=== PATIENT | male | born 1985 | race Caucasian/White ===

== ENCOUNTER 2020-03-30 10:10 | Emergency (ER) | payer OTHER, SELFPAY ==
--- NOTE | ~2020-03-30 | XR_ITS ---
EXAMINATION: XR pelvis 1-2V, XR lumbar spine 2-3V DATE: 03/30/2020 10:55 INDICATION: Low back pain radiating to the left hip post fall TECHNIQUE: 1. AP, lateral and cone-down lateral lumbosacral views of the lumbar spine were obtained. 2. An anteroposterior view of the pelvis was obtained. COMPARISON: None. FINDINGS: Lumbar spine: 5 mm retrolisthesis L5 on S1 with mild to moderate disc height loss. Bone alignment is otherwise norm al. Vertebral body heights are normal. Additional mild disc height loss at L4-L5 and T9-T10. Mild low er lumbar facet osteoarthritis. Sacrum and bilateral sacral iliac joints are normal. Pelvis: Alignment is normal. No fracture. Bilateral hip joint spaces are normal. A couple phleboliths in the left hemipelvis. IMPRESSION: 1. No acute osseous abnormality at the lumbar spine or pelvis. 2. Mild lumbar spondylosis. Reviewed, dictated and finalized at location A. IMPRESSION: 1. No acute osseous abnormality at the lumbar spine or pelvis. 2. Mild lumbar spondylosis.
[2020-03-30 10:18] VITALS: BP 139/82; PULSE 87; RESP 16; TEMP 36.4; O2SAT 100
--- NOTE | 2020-03-30 11:36 | ED.BACK ---
HPI - Back Pain/Injury General Chief Complaint: Back Pain/Injury Stated Complaint: pain in back & leg Source: patient and RN notes reviewed Limitations: no limitations History of Present Illness HPI Narrative: The patient, previously mostly healthy, presents with left back and hip pain. Patient states he slipped and fell off a 10 foot ladder while power washing a couple days ago. He complains of mild pain despite OTC NSAIDs, is worse with motion, better at rest, located proximal left thigh and left lower back-somewhat costovertebral. No other injury, numbness/weakness, radiating pain, bowel?bladder symptoms, hematuria/frequency/dysuria, shortness of breath, Fever, cough Related Data Home Medications Medication Instructions Recorded Confirmed No Home Medications 03/30/20 03/30/20 Allergies Allergy/AdvReac Type Severity Reaction Status Date / Time No Known Allergies Allergy Verified 03/30/20 10:31 Review of Systems Review of Systems: Narrative: General/Constitutional: No weight loss,fever Eyes: N0: Redness,discharge Ears/Nose/Throat: No: Epistaxis,ear discharge Respiratory: Denies: Hemoptysis Gastrointestinal: No Vomiting, Bleeding-rectal Skin: No Lumps, eruption Neurologic: No Focal Weakness,Sz Hematologic: Denies: Petechiae/Purpura Psychiatric: No: Suicida ideationl All Other Systems: Reviewed and Negative FOR[facility]LY [facility] Past Medical History Medical History (Updated 03/30/20 @ 11:10 by Everett Lopes MD) Healthy adult Unspecified sinusitis (chronic) Surgical History Surgical History (Updated 06/08/19 @ 10:27 by Forest Desir) No history of previous surgery Family History Family History (Updated 05/21/18 @ 09:09 by DOCTOR UNKNOWN) Grandparent Malignant neoplasm of prostate, Onset Age: 70 Other Depression Diabetes mellitus Social History Social History Smoking status: Never smoker Alcohol intake: current Gender identity (if verbalized by the patient): Male Comments At time of signature, agree with nursing past medical, surgical, social and family history. There is no relevant family history pertinent to the presenting complaint Exam Narrative: Exam Narrative: General Appearance: Well appearing, , Conjunctiva clear Mouth/Throat: Normal appearing, Normal lips, Supple Respiratory: Airway patent Abdomen: Soft Musculoskeletal: Normal strength (no footdrop, 5/5 : EH L-FHL, gastroc-AT, no saddle weakness) Spine/Back: Paraspinal muscle tender (with mild decreased range of motion; left posterior superior iliac crest) Skin: Bruising left proximal lateral thigh Neurological: A&O x3, CN II-XII intact, Normal reflexes (symmetric, 2+ KJ, trace AJ) Psychiatric: Normal mood Course Course Emergency Course: Films visualized, interpreted by radiologist, agree, normal see report Vital Signs Vital signs: Vital Signs Temperature 97.5 F L 03/30/20 10:18 Pulse Rate 87 03/30/20 10:18 Respiratory Rate 16 03/30/20 10:18 Blood Pressure 139/82 03/30/20 10:18 Pulse Oximetry 100 03/30/20 10:18 Temperature 97.5 F L 03/30/20 10:18 Pulse Rate 87 03/30/20 10:18 Respiratory Rate 16 03/30/20 10:18 Blood Pressure 139/82 03/30/20 10:18 Pulse Oximetry 100 03/30/20 10:18 Discharge Plan Discharge Clinical Impression: Contusion of hip, left Qualifiers: Encounter type: initial encounter Qualified Code(s): S70.02XA - Contusion of left hip, initial encounter Patient Disposition: Home, Self-Care Condition: Stable Instructions: Low Back Strain (ED) Prescriptions: New acetaminophen-codeine 300-30 mg tablet 1 tablet PO HS PRN (Reason: pain) Qty: 10 RF: 0 tramadol 50 mg tablet 50 mg PO Q6H PRN (Reason: pain) Qty: 15 RF: 1 No Action No Home Medications RF: 0 Interventions: Discharge Disposition Last Done: 03/30/20 11:16 Follow-up/Referrals: Brielle Bird MD [Primary Care Provider] -
== END 2020-03-30 11:16 | disposition home or self-care (01) ==
PROVIDERS: Emergency Provider Emergency Medicine; PCP Family Medicine
DX: S70.02XA Contusion of left hip, initial encounter (principal); W11.XXXA Fall on and from ladder, initial encounter
CPT/HCPCS: 72100; 72170; 99214; G0463